=== PATIENT | male | born 1955 | race Two or more races ===

== ENCOUNTER 2022-04-09 09:55 | Inpatient (IN) | payer OTHER ==
[2022-04-09 10:25] LABS: EOS % 0.9 % (0-4.5); HEMATOCRIT 41.3 % (35.4-49); HEMOGLOBIN 14.3 GM/dL (11.7-16.9); LYMPH % 40.9 % (8-40); MCH 33.3 pg (25.7-33.7); MCHC 34.7 g/dl (32.0-35.9); MEAN PLT VOLUME 7.8 fl (7.5-11.1); MONO % 7.1 % (3.8-10.2); NEUT % 50.1 % (42.8-82.8); PLATELET COUNT 242 10^3/uL (134-434); RBC 4.31 M/mm3 (4.00-5.60); RDW 14.1 % (11.9-15.9); WHITE BLOOD COUNT 10.9 K/mm3 (4.0-10.0)
[2022-04-09 10:44] LABS: CHLORIDE 107 mmol/L (98-107); SODIUM 139 mmol/L (136-145)
[2022-04-09 10:46] LABS: ALBUMIN 3.8 g/dl (3.4-5.0); ANION GAP 9 MMOL/L (8-16); BLOOD UREA NITROGEN 20.6 mg/dL (7-18); CALCIUM 9.8 mg/dL (8.5-10.1); CO2 24 mmol/L (21-32); GLUCOSE,RANDOM 110 mg/dL (74-106)
[2022-04-09 10:47] LABS: INR 0.96 (0.83-1.09)
[2022-04-09 10:49] LABS: CREATININE 1.2 mg/dL (0.55-1.3); SGOT/AST 21 U/L (15-37); SGPT/ALT 22 U/L (13-61)
[2022-04-09 10:51] LABS: BILIRUBIN,TOTAL 0.4 mg/dL (0.2-1); TOT PROT 7.3 g/dl (6.4-8.2)
[2022-04-09 10:52] LABS: ALK PHOS 54 U/L (45-117)
[2022-04-09 10:54] LABS: N-TERMINAL BNP 38.6 pg/ml (5-125)
[2022-04-09] MEDS ORDERED: PIPERACILLIN/TAZOB 3.375 GM 3.375 GM/50 ML BAG IVPB ONE (11:08)
[2022-04-09] MEDS ORDERED: NICOTINE 14 MG/24 HOURS TOPICAL PATCH TD SCH (12:15)
[2022-04-09 12:44] LABS: CHOLESTEROL 203 mg/dL (50-200)
[2022-04-09 12:45] LABS: TRIGLYCERIDES 383 mg/dL (0-150)
[2022-04-09 12:46] LABS: LDL CHOLESTEROL (ONLY SJRH) 108 mg/dL (5-100)
[2022-04-09 12:47] LABS: HDL CHOLESTEROL 42 mg/dL (40-60)
[2022-04-09] MEDS ORDERED: ENOXAPARIN NA (PORCINE) 40 MG/0.4 ML DISP.SYRIN SQ ONE (15:41)
[2022-04-09] MEDS ORDERED: ASPIRIN 81 MG CHEWABLE TABLETS ONE (15:41)
[2022-04-09] MEDS: ENOXAPARIN NA (PORCINE) 40 MG/0.4 ML DISP.SYRIN SQ SCH (15:44)
[2022-04-09] MEDS: ASPIRIN COATED 81 MG TABLET.EC PO SCH (15:44)
[2022-04-09 16:27] LABS: URINE APPEARANCE CLEAR; URINE BILIRUBIN NEGATIVE (NEGATIVE); URINE COLOR YELLOW; URINE GLUCOSE (UA) NEGATIVE (NEGATIVE); URINE KETONE NEGATIVE (NEGATIVE); URINE LEUK ESTERASE NEGATIVE (NEGATIVE); URINE NITRITE NEGATIVE (NEGATIVE); URINE PROTEIN NEGATIVE (NEGATIVE); URINE UROBILINOGEN 0.2 mg/dL (0.2-1.0)
[2022-04-09 16:36] LABS: INR 0.92 (0.83-1.09); PROTHROMBIN TIME (PATIENT) 10.6 SEC (9.7-13.0)
[2022-04-09 16:37] LABS: ACTIVATED PTT 29.4 SECONDS (25.2-36.5)
[2022-04-09 17:01] LABS: CHOLESTEROL 196 mg/dL (50-200); TRIGLYCERIDES 371 mg/dL (0-150)
[2022-04-09 17:02] LABS: LDL CHOLESTEROL (ONLY SJRH) 107 mg/dL (5-100)
[2022-04-09 17:04] LABS: HDL CHOLESTEROL 38 mg/dL (40-60)
[2022-04-09] MEDS ORDERED: ATORVASTATIN CA 40 MG TABLET (FP) PO SCH (22:00)
[2022-04-09] MEDS ORDERED: ATORVASTATIN CA 40 MG TABLET (FP) ONE (22:21)
[2022-04-10 07:07] LABS: ALBUMIN 3.4 g/dl (3.4-5.0); CALCIUM 9.3 mg/dL (8.5-10.1); MAGNESIUM 1.8 mg/dL (1.8-2.4)
[2022-04-10 07:08] LABS: BLOOD UREA NITROGEN 17.1 mg/dL (7-18)
[2022-04-10 07:11] LABS: CREATININE 1.1 mg/dL (0.55-1.3); PHOSPHOROUS 3.4 mg/dL (2.5-4.9)
[2022-04-10 07:12] LABS: BILIRUBIN,TOTAL 0.4 mg/dL (0.2-1); TOT PROT 6.8 g/dl (6.4-8.2)
[2022-04-10] MEDS ORDERED: ATORVASTATIN CA 40 MG TABLET (FP) PO SCH ×2 (08:12→22:00)
[2022-04-10] MEDS ORDERED: amLODIPine BESYLATE 5 MG TABLET (FP) ONE (08:55)
[2022-04-10] MEDS ORDERED: ASPIRIN COATED 81 MG TABLET.EC ONE (08:55)
[2022-04-10] MEDS ORDERED: ENOXAPARIN NA (PORCINE) 40 MG/0.4 ML DISP.SYRIN SQ ONE (08:56)
[2022-04-10] MEDS ORDERED: VALSARTAN 80 MG TABLET ONE (08:56)
[2022-04-10] MEDS: amLODIPine BESYLATE 5 MG TABLET (FP) PO SCH (11:25)
[2022-04-10] MEDS: ASPIRIN COATED 81 MG TABLET.EC PO SCH (11:25)
[2022-04-10] MEDS: ENOXAPARIN NA (PORCINE) 40 MG/0.4 ML DISP.SYRIN SQ SCH (11:25)
[2022-04-10] MEDS: VALSARTAN 160 MG TABLET PO SCH (11:25)
[2022-04-10 12:40] VITALS: BMI 26.5
[2022-04-10] MEDS: NICOTINE POLACRILEX 2 MG GUM BUC PRN ×2 (13:02→17:34)
[2022-04-10 14:29] VITALS: TEMP 98
[2022-04-11 06:32] LABS: HEMATOCRIT 39.4 % (35.4-49); HEMOGLOBIN 13.6 GM/dL (11.7-16.9); MCHC 34.4 g/dl (32.0-35.9); MEAN CELL VOLUME 95.8 fl (80-96); MEAN PLT VOLUME 8.3 fl (7.5-11.1); PLATELET COUNT 221 10^3/uL (134-434); RBC 4.11 M/mm3 (4.00-5.60)
[2022-04-11 06:52] LABS: CALCIUM 9.3 mg/dL (8.5-10.1)
[2022-04-11 06:53] LABS: ALBUMIN 3.6 g/dl (3.4-5.0); BLOOD UREA NITROGEN 13.3 mg/dL (7-18); MAGNESIUM 1.9 mg/dL (1.8-2.4)
[2022-04-11 06:56] LABS: CREATININE 1.1 mg/dL (0.55-1.3); PHOSPHOROUS 2.9 mg/dL (2.5-4.9)
[2022-04-11 06:58] LABS: BILIRUBIN,TOTAL 0.4 mg/dL (0.2-1); TOT PROT 6.8 g/dl (6.4-8.2)
[2022-04-11] MEDS: amLODIPine BESYLATE 5 MG TABLET (FP) PO SCH (09:53)
[2022-04-11] MEDS: VALSARTAN 160 MG TABLET PO SCH (09:53)
[2022-04-11] MEDS: ASPIRIN COATED 81 MG TABLET.EC PO SCH (09:53)
[2022-04-11] MEDS: ENOXAPARIN NA (PORCINE) 40 MG/0.4 ML DISP.SYRIN SQ SCH (09:53)
[2022-04-11] MEDS ORDERED: ENOXAPARIN NA (PORCINE) 40 MG/0.4 ML DISP.SYRIN SQ ONE (09:58)
[2022-04-11] MEDS ORDERED: ASPIRIN 81 MG CHEWABLE TABLETS ONE (09:58)
[2022-04-11] MEDS ORDERED: amLODIPine BESYLATE 5 MG TABLET (FP) ONE (09:58)
[2022-04-11] MEDS ORDERED: VALSARTAN 80 MG TABLET ONE (09:58)
[2022-04-11 14:01] VITALS: BP 126/78; PULSE 73; RESP 20
== END 2022-04-11 13:55 | disposition home or self-care (01) | DRG 69 ==
LOC: JER 09:55 → JERBED 14:48
PROVIDERS: ADMIT Internal Medicine; ATTEND Internal Medicine
DX: G45.9 Transient cerebral ischemic attack, unspecified (principal); G81.94 Hemiplegia, unspecified affecting left nondominant side; R27.0 Ataxia, unspecified; I10 Essential (primary) hypertension; E78.5 Hyperlipidemia, unspecified; C61 Malignant neoplasm of prostate; R29.705 NIHSS score 5; D72.829 Elevated white blood cell count, unspecified; K52.9 Noninfective gastroenteritis and colitis, unspecified; R73.9 Hyperglycemia, unspecified; F17.210 Nicotine dependence, cigarettes, uncomplicated; R20.0 Anesthesia of skin
CPT/HCPCS: 0241U-QW; 36415; 70450-TC; 70496-TC; 70498-TC; 70551-TC; 71045-TC-FY; 80053; 80061; 80307; 81003; 82607; 82962; 83036; 83735; 83880; 84100; 84443; 84484; 85025; 85027; 85610; 85730; 86850; 86900; 86901; 93005; 93010; 93306-TC; 93880-TC; 97116-GP; 97161-GP; 99291